=== PATIENT | female | born 1960 | race African-American/Black ===

== ENCOUNTER 2017-11-05 21:18 | Emergency (ER) | payer OTHER ==
[~2017-11-05] VITALS: Ht 160 cm; Wt 97.2 kg
[~2017-11-05 21:18] MED LIST: ALBU0.0912 IH; ASPI81CT89 PO; BENA5TAB4 PO; GLYB5TAB13 PO; IND25 PO
[2017-11-05 21:22] VITALS: BP 130/80
--- NOTE | 2017-11-05 21:25 | NUR ---
TO LOBBY A/W BED, KENDRA KATZ NOTED
--- NOTE | 2017-11-05 22:45 | NUR ---
PT AMBULATED TO BED 2
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
--- NOTE | 2017-11-05 23:15 | NUR ---
DR ALVAREZ AT BEDSIDE
[2017-11-05] MEDS ORDERED: DEXAMETHASONE 10 MG/ML VIAL IM ONE (23:30)
[2017-11-06] VITALS: BP 128/84
--- NOTE | 2017-11-06 | NUR ---
Patient discharged with v/s stable. Written and verbal after care instructions given and explained. Patient alert, oriented and verbalized understanding of instructions. Ambulatory with steady gait. All questions addressed prior to discharge. ID band removed. Patient advised to follow up with PMD. Rx of TRAMADOL AND BENTYL given. Patient educated on indication of medication including possible reaction and side effects. Opportunity to ask questions provided and answered.
== END 2017-11-06 | disposition home or self-care (01) ==
LOC: MED 21:18
DX: M75.22 Bicipital tendinitis, left shoulder (principal); M79.1 Myalgia; E11.9 Type 2 diabetes mellitus without complications; K21.9 Gastro-esophageal reflux disease without esophagitis; I10 Essential (primary) hypertension; E07.9 Disorder of thyroid, unspecified; Z79.899 Other long term (current) drug therapy; Z88.6 Allergy status to analgesic agent; V89.2XXA Person injured in unspecified motor-vehicle accident, traffic, initial encounter; Y93.89 Activity, other specified; Y99.8 Other external cause status; Y92.89 Other specified places as the place of occurrence of the external cause
CPT/HCPCS: 96372; 99283; J1100

== ENCOUNTER 2019-05-01 14:09 | Emergency (ER) | payer OTHER ==
[~2019-05-01] VITALS: Ht 162.6 cm; Wt 93.9 kg
[~2019-05-01 14:09] MED LIST changes: +ASPI-1718 PO; -ASPI81CT89 PO; -BENA5TAB4 PO; +BENA5TAB7 PO; -IND25 PO; +[UNRECOGNIZED DRUG - CODE] PO
[2019-05-01 14:21] VITALS: BP 124/71
--- NOTE | 2019-05-01 15:18 | NUR ---
58/F BIB SELF C/O LT FA ARM PAIN X MONTHS/YEARS. S/P LT ROTATOR CUFF SURGERY 04/15/19 THINKS THE PAIN MAY BE DUE TO THE SLING PT HAS ON. HX- DM, HTN, IBS, THYROID DZ. PATIENT STATES PAIN OF 8/10 AT THIS TIME; PATIENT POSITIONED FOR COMFORT; HOB ELEVATED; BEDRAILS UP X1; BED DOWN. ER MD MADE AWARE OF PT STATUS.
[2019-05-01 15:44] VITALS: BP 121/68
== END 2019-05-01 15:44 | disposition home or self-care (01) ==
LOC: MED 14:09
DX: N39.0 Urinary tract infection, site not specified (principal); E11.9 Type 2 diabetes mellitus without complications; I10 Essential (primary) hypertension; E07.9 Disorder of thyroid, unspecified; G21.9 Secondary parkinsonism, unspecified; Z48.01 Encounter for change or removal of surgical wound dressing; Z88.5 Allergy status to narcotic agent; Z79.82 Long term (current) use of aspirin; Z79.899 Other long term (current) drug therapy
CPT/HCPCS: 81002; 81025; 99283

== ENCOUNTER 2022-04-01 15:06 | Emergency (ER) | payer OTHER ==
[~2022-04-01] VITALS: Ht 162.6 cm; Wt 77.1 kg
[~2022-04-01 15:06] MED LIST changes: -ASPI-1718 PO; +ASPI-1822 PO; +BENA5TAB36 PO; -BENA5TAB7 PO; +INDO-323 PO; -[UNRECOGNIZED DRUG - CODE] PO
--- NOTE | 2022-04-01 15:27 | NUR ---
PT AMBULATED TO BED 2
[2022-04-01 15:29] VITALS: BP 134/73
--- NOTE | 2022-04-01 15:33 | NUR ---
DR GREWAL AT BEDSIDE, URINE COLLECTED.
[2022-04-01] MEDS ORDERED: NACL 0.9% 1,000 ML IV ONE (15:35)
[2022-04-01 16:11] LABS: APPEARANCE,URINE CLEAR (CLEAR); BILIRUBIN,URINE NEGATIVE (NEGATIVE); BLOOD, URINE 1+ (NEGATIVE); COLOR,URINE YELLOW (YELLOW); LEUKOCYTE ESTERASE ,URINE NEGATIVE (NEGATIVE); NITRITE, URINE NEGATIVE (NEGATIVE); PH,URINE 5.5 (5.0-9.0); UGLUCOSE NEGATIVE (NEGATIVE)
[2022-04-01 16:16] LABS: BASOPHILS # (AUTO) 0.1 K/uL (0.00-0.22); BASOPHILS % (AUTO) 0.8 % (0.0-2.0); EOSINOPHILS # (AUTO) 0.1 K/uL (0-0.4); EOSINOPHILS % (AUTO) 1.1 % (0.0-4.0); HEMATOCRIT 36.6 % (36-48); LYMPHOCYTES # (AUTO) 2.7 K/uL (2.5-16.5); MEAN CORPUSCULAR HEMOGLOBIN 26 pg (27-31); MEAN CORPUSCULAR HGB CONC 33 g/dL (33-37); MEAN CORPUSCULAR VOLUME 78.5 fL (80-94); MONOCYTES # (AUTO) 0.6 K/uL (0.8-1.0); MONOCYTES % (AUTO) 8.1 % (1.7-9.3); NEUTROPHILS # (AUTO) 3.4 K/uL (1.8-7.7); PLATELET COUNT (AUTO) 254 K/uL (140-450); RED BLOOD CELL COUNT(AUTO) 4.66 MIL/uL (4.20-5.40); RED CELL DISTRIBUTION WIDTH 12.8 % (11.6-13.7); WHITE BLOOD COUNT (AUTO) 6.9 K/uL (4.8-10.8)
[2022-04-01 16:39] LABS: ALBUMIN 3.3 g/dL (3.4-5.0); ASPARTATE AMINOTRANSFERASE 5 U/L (15-37); CHLORIDE 105 mmol/L (98-107); GFR ARICAN-AMERICAN 72 mL/min (>90); GLUCOSE 108 mg/dL (74-106); LIPASE 39 U/L (73-393); SODIUM SERUM 140 mmol/L (136-145); TOTAL BILIRUBIN 0.2 mg/dL (0.0-1.0); UREA NITROGEN, BLOOD 16 mg/dL (7-18)
[2022-04-01 16:48] LABS: TRICHOMONAS,URINE None Seen /HPF (None Seen); WBC,URINE 0-5 /HPF (0-5); YEAST,URINE None Seen /HPF (None Seen)
--- NOTE | 2022-04-01 19:49 | NUR ---
Patient discharged with v/s stable. Written and verbal after care instructions ABOUT POSTMENOPAUSAL BLEEDING AND SYNCOPE given and explained. Patient verbalized understanding. Ambulatory with steady gait. All questions addressed prior to discharge. Advised to follow up with PMD.
== END 2022-04-01 19:49 | disposition home or self-care (01) ==
LOC: MED 15:06
DX: N92.4 Excessive bleeding in the premenopausal period (principal); R55 Syncope and collapse; I10 Essential (primary) hypertension; E11.9 Type 2 diabetes mellitus without complications; K21.9 Gastro-esophageal reflux disease without esophagitis; E03.9 Hypothyroidism, unspecified; Z79.4 Long term (current) use of insulin; Z79.899 Other long term (current) drug therapy; Z79.1 Long term (current) use of non-steroidal anti-inflammatories (NSAID); Z88.2 Allergy status to sulfonamides
CPT/HCPCS: 36415; 70450; 73030; 74177; 76856; 80053; 81001; 83690; 84484; 85025; 93005; 96360; 96361; 99285; J7030; Q0092; Q9967